=== PATIENT | male | born 1945 ===

== ENCOUNTER 2016-11-16 11:43 | Emergency (ER) | payer SELFPAY ==
[~2016-11-16] VITALS: Ht 162.6 cm; Wt 75.0 kg
[2016-11-16 11:44] VITALS: BP 142/76
== END 2016-11-16 12:00 | disposition left against medical advice (07) ==
LOC: M ED 11:43
DX: R53.1 Weakness (principal); Z53.21 Procedure and treatment not carried out due to patient leaving prior to being seen by health care provider